=== PATIENT | female | born 1955 | race Caucasian/White ===

== ENCOUNTER 2019-12-29 16:09 | Emergency (ER) | payer OTHER ==
[2019-12-29 17:28] LABS: MUDS CUTOFF CONCENTRATIONS CUTOFF CONC BELOW:
[2019-12-29 17:31] LABS: BILIRUBIN,URINE NEGATIVE (NEGATIVE); GLUCOSE, URINE (UA) NEGATIVE (NEGATIVE); KETONES,URINE (UA) NEGATIVE (NEGATIVE); LEUKOCYTE ESTERASE, URINE NEGATIVE (NEGATIVE); NITRITE,URINE NEGATIVE (NEGATIVE); OCCULT BLOOD,URINE TRACE-LYSE (NEGATIVE); PROTEIN,URINE NEGATIVE (NEGATIVE); UROBILINOGEN,URINE 0.2 (NORMAL) E.U./dL (NORMAL)
[2019-12-29 17:32] LABS: CLARITY,URINE CLEAR (CLEAR)
[2019-12-29 17:42] LABS: AMPHETAMINE SCREEN,URINE NEGATIVE (NEGATIVE); BENZODIAZEPINES SCREEN, URINE NEGATIVE (NEGATIVE); COCAINE SCREEN URINE NEGATIVE (NEGATIVE); METHADONE SCREEN, URINE NEGATIVE (NEGATIVE); METHAMPHETAMINES SCREEN, URINE NEGATIVE (NEGATIVE); OPIATE SCREEN, URINE NEGATIVE (NEGATIVE); OXYCODONE SCREEN, URINE NEGATIVE (NEGATIVE); PROPOXYPHENE SCREEN, URINE NEGATIVE (NEGATIVE); TRICYCLIC ANTIDEPRESSANT,URINE NEGATIVE (NEGATIVE)
[2019-12-29 17:43] LABS: BASOPHILS # (AUTO) 0.1 10^3/uL (0.0-0.1); BASOPHILS % (AUTO) 1.6 %; EOSINOPHILS # (AUTO) 0.1 10^3/uL (0.0-0.7); EOSINOPHILS % (AUTO) 1.5 %; LYMPHOCYTES # (AUTO) 3.3 10^3/uL (1.5-3.5); LYMPHOCYTES % (AUTO) 48.7 %; MEAN CORPUSCULAR HEMOGLOBIN 33.7 pg (27.0-31.0); MEAN CORPUSCULAR HGB CONC 34.2 g/dL (32.0-36.0); MEAN CORPUSCULAR VOLUME 98.7 fL (81.0-99.0); MEAN PLATELET VOLUME 9.5 fL (7.9-10.8); MONOCYTES # (AUTO) 0.7 10^3/uL (0.0-1.0); MONOCYTES % (AUTO) 9.9 %; NEUTROPHILS # (AUTO) 2.6 10^3/uL (1.5-6.6); NEUTROPHILS % (AUTO) 37.9 %; PLT - PLATELET COUNT 228 10^3/uL (130-450); RED BLOOD COUNT 4.45 10^6/uL (4.20-5.40); RED CELL DISTRIBUTION WIDTH 13.2 % (12.0-15.0); WHITE BLOOD COUNT 6.7 x10^3/uL (4.8-10.8)
--- NOTE | 2019-12-29 17:55 | ED Physician Documentation ---
PD HPI MHE - Stated complaint Stated Complaint: MHE - Chief complaint Chief Complaint: MHE - History obtained from History obtained from: Patient, Friend - History of Present Illness Primary symptom: Suicidal ideation, Other (alcoholic) Timing - onset: Unknown Pain level max: 0 Pain level now: 0 Recently seen: Not recently seen - Additional information Additional information: Patient is a 64-year-old female who presents to the emergency department stating that she has increasing alcohol use over the past several years, increasing depression recently. Brought in by her friend for help. She states that her grandson was murdered approximately 5 years ago. She does not see a counselor. Her doctor has been prescribing Zoloft and Wellbutrin, she has intermittently been taking this. She states she does not want to be in the emergency department. She states that she just wants to get in her truck and "go for a swim". By this she means she wants to drive it off the bridge and into the water below. Review of Systems Ten Systems: 10 systems reviewed and negative Constitutional: denies: Fever, Chills Ears: denies: Ear pain Nose: denies: Rhinorrhea / runny nose, Congestion Throat: denies: Sore throat Cardiac: denies: Chest pain / pressure Respiratory: denies: Cough GI: denies: Nausea, Vomiting, Diarrhea Skin: denies: Rash Musculoskeletal: denies: Neck pain, Back pain Neurologic: denies: Focal weakness, Numbness, Headache PD PAST MEDICAL HISTORY - Past Medical History Cardiovascular: None Respiratory: Asthma Neuro: TIA Endocrine/Autoimmune: None GI: GERD TRAINING MGR: None : None HEENT: None Psych: Depression, Anxiety Musculoskeletal: None Derm: None - Past Surgical History Past Surgical History: Yes General: Appendectomy Ortho: Other /TRAINING MGR: section - Allergies Allergies/Adverse Reactions: Allergies Allergy/AdvReac Type Severity Reaction Status Date / Time No Known Drug Allergies Allergy Verified 12/29/19 16:39 - Social History Does the pt smoke?: Yes Smoking Status: Current every day smoker Does the pt drink ETOH?: Yes ETOH Use: Wine Does the pt have substance abuse?: Yes Substance Use and Type: Marijuana - Immunizations Immunizations are current?: Yes PD ED PE NORMAL - Vitals Vital signs reviewed: Yes - General General: Alert and oriented X 3, No acute distress, Other (intoxicated, tearful) - HEENT HEENT: PERRL, Moist mucous membranes - Neck Neck: Supple, no meningeal sign - Cardiac Cardiac: RRR - Respiratory Respiratory: No respiratory distress, Clear bilaterally - Abdomen Abdomen: Soft, Non tender, Non distended - Derm Derm: Warm and dry - Extremities Extremities: No edema - Neuro Neuro: Alert and oriented X 3 - Psych Psych: Other (tearful, intoxicated.) Results - Vitals Vitals: Vital Signs - 24 hr 12/29/19 12/29/19 16:25 17:17 Temperature 36.8 C Heart Rate 110 H 99 Respiratory 20 18 Rate Blood Pressure 159/91 H 158/89 H O2 Saturation 98 95 Oxygen O2 Source Room air - Labs Labs: Laboratory Tests 12/29/19 12/29/19 12/29/19 16:57 17:38 17:38 WBC 6.7 RBC 4.45 Hgb 15.0 Hct 43.9 MCV 98.7 MCH 33.7 H MCHC 34.2 RDW 13.2 Plt Count 228 MPV 9.5 Neut # (Auto) 2.6 Lymph # (Auto) 3.3 [place] # (Auto) 0.7 Eos # (Auto) 0.1 Baso # (Auto) 0.1 Absolute Nucleated RBC 0.00 Nucleated RBC % 0.0 Sodium 142 Potassium 4.0 Chloride 104 Carbon Dioxide 19 L Anion Gap 19.0 H BUN 9 Creatinine 0.5 Estimated GFR (MDRD) 125 Glucose 100 Calcium 9.0 Total Bilirubin 0.6 AST 31 ALT 26 Alkaline Phosphatase 68 Total Protein 7.7 Albumin 4.2 Globulin 3.5 Albumin/Globulin Ratio 1.2 Lipase 21 L TSH Urine Color YELLOW Urine Clarity CLEAR Urine pH 5.0 Ur Specific [place] 1.025 Urine Protein NEGATIVE Urine Glucose (UA) NEGATIVE Urine Ketones NEGATIVE Urine Occult Blood TRACE-LYSE Urine Nitrite NEGATIVE Urine Bilirubin NEGATIVE Urine Urobilinogen 0.2 (NORMAL) Ur Leukocyte Esterase NEGATIVE Ur Microscopic Review NOT INDICATED Urine Culture Comments NOT INDICATED Salicylates < 6.0 Urine Opiates Screen NEGATIVE Ur Oxycodone Screen NEGATIVE Urine Methadone Screen NEGATIVE Ur Propoxyphene Screen NEGATIVE Acetaminophen < 10 L Ur Barbiturates Screen NEGATIVE Ur Tricyclics Screen NEGATIVE Ur Phencyclidine Scrn NEGATIVE Ur Amphetamine Screen NEGATIVE U Methamphetamines Scrn NEGATIVE U Benzodiazepines Scrn NEGATIVE Urine Cocaine Screen NEGATIVE U Cannabinoids Screen NEGATIVE Ethyl Alcohol 298.1 12/29/19 17:38 WBC RBC Hgb Hct MCV MCH MCHC RDW Plt Count MPV Neut # (Auto) Lymph # (Auto) [place] # (Auto) Eos # (Auto) Baso # (Auto) Absolute Nucleated RBC Nucleated RBC % Sodium Potassium Chloride Carbon Dioxide Anion Gap BUN Creatinine Estimated GFR (MDRD) Glucose Calcium Total Bilirubin AST ALT Alkaline Phosphatase Total Protein Albumin Globulin Albumin/Globulin Ratio Lipase TSH 0.87 Urine Color Urine Clarity Urine pH Ur Specific [place] Urine Protein Urine Glucose (UA) Urine Ketones Urine Occult Blood Urine Nitrite Urine Bilirubin Urine Urobilinogen Ur Leukocyte Esterase Ur Microscopic Review Urine Culture Comments Salicylates Urine Opiates Screen Ur Oxycodone Screen Urine Methadone Screen Ur Propoxyphene Screen Acetaminophen Ur Barbiturates Screen Ur Tricyclics Screen Ur Phencyclidine Scrn Ur Amphetamine Screen U Methamphetamines Scrn U Benzodiazepines Scrn Urine Cocaine Screen U Cannabinoids Screen Ethyl Alcohol PD MEDICAL DECISION MAKING - ED course Complexity details: reviewed results, re-evaluated patient, considered differential, d/w patient, d/w family ED course: Patient is intoxicated in the emergency department. She keeps attempting to leave the department but is here with her friend who is helping to redirect her. She continues to make multiple suicidal statements. I do not feel that she is competent to keep herself safe at home. Therefore she will be held in the emergency department while she araseli and reevaluated after that. Patient signed out to the [facility] emergency department physician. Patient will likely need a dual diagnosis treatment facility. Departure - Departure Clinical Impression: Alcoholism, Suicidal ideation Depression Qualifiers: Depression Type: unspecified Qualified Code(s): F32.9 - Major depressive disorder, single episode, unspecified Condition: Stable
[2019-12-29 17:59] LABS: ACETAMINOPHEN < 10 ug/mL (10-30); ALBUMIN 4.2 g/dL (3.2-5.5); ALBUMIN/GLOBULIN RATIO 1.2 (1.0-2.2); ALKALINE PHOSPHATASE 68 IU/L (42-121); ALT ALANINE AMINOTRANSFERASE 26 IU/L (10-60); AST ASPARTATE AMINOTRANSFERASE 31 IU/L (10-42); BILIRUBIN,TOTAL 0.6 mg/dL (0.2-1.0); BUN - BLOOD UREA NITROGEN 9 mg/dL (6-20); CARBON DIOXIDE - CO2 19 mmol/L (21-32); CHLORIDE 104 mmol/L (101-111); CREATININE 0.5 mg/dL (0.4-1.0); GLUCOSE 100 mg/dL (70-100); LIPASE 21 U/L (22-51); SALICYLATE < 6.0 mg/dL; SODIUM 142 mmol/L (135-145); TOTAL PROTEIN 7.7 g/dL (6.7-8.2)
[2019-12-29] MEDS ORDERED: LORazepam 1 MG TABLET PO STA (20:19)
[2019-12-30] MEDS ORDERED: ONDANSETRON ODT 4 MG TABLET TL STA (03:36)
[2019-12-30] MEDS ORDERED: LORazepam 1 MG TABLET PO STA ×2 (03:36→15:47)
--- NOTE | 2019-12-30 15:18 | ED Physician Documentation ---
ED Addendum - Addendum Addendum: 12/30/19 15:16Patient had an uneventful night. She is been cooperative now in the ER since being sober. She has not needed medication. Social work has talked with the patient. The patient states she is not feeling suicidal at this point. She is willing to be treated for dual diagnosis of her substance abuse and depression. She is not having any focal symptoms otherwise. Denies chest pain or belly pain. No vomiting or diarrhea. She is awake and interacts conversant politely. Respirations are unlabored. Moves all extremities.
--- NOTE | 2019-12-30 17:00 | ED Physician Documentation ---
ED Addendum - Addendum Addendum: 12/30/19 16:58 The patient was further assessed and counseled by social work. They were trying to get acute detox. However the patient was preferring to [facility] and was trying to make arrangements outpatient on her own. For concern of patient compliance and for concern of minimizing depression symptoms, the social insurance adviser felt DCR evaluation was warranted. Vero from DCR rehabilitation attendant talked with the patient and felt that she was not needing detainment and could be discharged home. The patient is preferring to get herself into [facility]. I offered medication for withdrawal symptoms and she accepted that. We will now be discharging her home. Discharge diagnosis: Alcoholism 2. Alcohol intoxication 3. Suicidal ideation and depression Disposition discharged home in stable condition
[2019-12-30 17:13] VITALS: BP 194/95
== END 2019-12-30 17:14 | disposition home or self-care (01) ==
LOC: ED 16:09
DX: F32.9 Major depressive disorder, single episode, unspecified (principal); R45.851 Suicidal ideations; F10.229 Alcohol dependence with intoxication, unspecified; F17.200 Nicotine dependence, unspecified, uncomplicated; Z20.828 Contact with and (suspected) exposure to other viral communicable diseases
CPT/HCPCS: 36415; 80320; 80329; 81003; 83690; 87635; 93005; 99283; 99284; J8499; Q0162; 80053; 80306; 80307; 81001; 82607; 83735; 84443; 85025; 87086

== ENCOUNTER 2020-02-14 21:09 | Outpatient (CLI) | payer OTHER | END 2020-02-14 21:10 | disposition critical access hospital (66) | LOC: EMS 21:09 | PROVIDERS: ATTEND Surgery | DX: R45.89 Other symptoms and signs involving emotional state (principal); Z72.89 Other problems related to lifestyle | CPT/HCPCS: A0425; A0429 ==

== ENCOUNTER 2020-02-14 21:33 | Emergency (ER) | payer OTHER ==
--- NOTE | 2020-02-14 22:21 | ED Physician Documentation ---
History of Present Illness - Stated complaint Stated Complaint: alcohol and marijuana use - Chief complaint Chief Complaint: General - History obtained from History obtained from: Patient - Additonal information Additional information: 64-year-old woman with past medical history of alcohol abuse presents with alcohol and marijuana intoxication this evening. She states she has been depressed this week and was drinking box wine today then smoked marijuana "for the first time in 40 years". she then began to feel extremely anxious, called multiple friends and family, and eventually ems was called. she expressed interest in detox program at that time. on arrival to ed patient is intoxicated, with no acute complaints. denies si/hi/avh. Interested in obtaining information about detox. denies prior withdrawal history. denies other drug use besides MJ. Review of Systems Ten Systems: 10 systems reviewed and negative PD PAST MEDICAL HISTORY - Past Medical History Cardiovascular: None Respiratory: Asthma Neuro: TIA Endocrine/Autoimmune: None GI: GERD FIGURE MODEL: None : None HEENT: None Psych: Depression, Anxiety Musculoskeletal: None Derm: None - Past Surgical History Past Surgical History: Yes General: Appendectomy Ortho: Other /FIGURE MODEL: section - Present Medications Home Medications: Ambulatory Orders Medication Instructions Recorded Confirmed Ondansetron Odt [Zofran] 4 mg TL Q6H PRN #10 tablet 12/30/19 chlordiazePOXIDE [Librium] 25 mg PO Q6H PRN #16 capsule 12/30/19 - Allergies Allergies/Adverse Reactions: Allergies Allergy/AdvReac Type Severity Reaction Status Date / Time No Known Drug Allergies Allergy Verified 02/14/20 21:38 - Social History Does the pt smoke?: Yes Smoking Status: Current every day smoker Does the pt drink ETOH?: Yes Does the pt have substance abuse?: Yes - Immunizations Immunizations are current?: Yes PD ED PE NORMAL - Vitals Vital signs reviewed: Yes - General General: Alert and oriented X 3 - HEENT HEENT: Atraumatic, PERRL, EOMI - Neck Neck: Supple, no meningeal sign - Cardiac Cardiac: RRR - Respiratory Respiratory: No respiratory distress, Clear bilaterally - Abdomen Abdomen: Normal bowel sounds, Non tender, Non distended - Female Female : Deferred - Rectal Rectal: Deferred - Back Back: No spinal TTP - Derm Derm: Normal color, Warm and dry - Extremities Extremities: No deformity - Neuro Neuro: Alert and oriented X 3 - Psych Psych: Other (clinically intoxicated) Results - Vitals Vitals: Vital Signs - 24 hr 02/14/20 02/14/20 02/14/20 21:38 21:45 23:50 Temperature 36.6 C 36.6 C Heart Rate 118 H 118 H 95 Respiratory 18 18 Rate Blood Pressure 172/109 H 172/109 H 190/88 H O2 Saturation 97 97 94 02/15/20 06:25 Temperature 37.0 C Heart Rate 108 H Respiratory 20 Rate Blood Pressure 197/116 H O2 Saturation 94 Oxygen O2 Source Room air PD MEDICAL DECISION MAKING - ED course ED course: Old woman with past medical history of alcohol abuse presents with alcohol and marijuana intoxication. No other complaints at this time. Patient observed in the ED. sobriety obtained after a few hours. tolerating po, ambulatory without difficulty, clinically sober. Patient feels safe to go home at this time. Education given. return precautions given. follow up pcp. Departure - Departure Disposition: 01 Home, Self Care Clinical Impression: Alcoholism, Alcohol abuse, Polysubstance (excluding opioids) dependence, Marijuana abuse Condition: Good Instructions: Addiction Alcohol Comments: You have been seen in the emergency department for acute alcohol intoxication as well as marijuana intoxication. You should follow up with your primary doctor to obtain resources to help you manage your addiction. Return to the ED for any other concerns. Discharge Date/Time: 02/15/20 06:54
[2020-02-14] MEDS ORDERED: THIAMINE 100 MG TABLET PO STA (23:33)
[2020-02-15 06:29] VITALS: BP 197/116
== END 2020-02-15 06:54 | disposition home or self-care (01) ==
LOC: EDUNIT# → ED 21:33
DX: F10.229 Alcohol dependence with intoxication, unspecified (principal); F12.229 Cannabis dependence with intoxication, unspecified; F32.9 Major depressive disorder, single episode, unspecified; F41.9 Anxiety disorder, unspecified; F17.200 Nicotine dependence, unspecified, uncomplicated
CPT/HCPCS: 99281; 99283; A9270

== ENCOUNTER 2020-04-08 | Outpatient (CLI) | payer OTHER | END 2020-04-08 23:59 | disposition short-term general hospital (02) | CPT/HCPCS: A0425; A0429 ==

== ENCOUNTER 2021-06-04 04:24 | Outpatient (CLI) | payer OTHER | END 2021-06-04 04:25 | disposition EMS.NT | LOC: EMS 04:24 | DX: S51.812A Laceration without foreign body of left forearm, initial encounter (principal); R45.83 Excessive crying of child, adolescent or adult; F41.9 Anxiety disorder, unspecified; W19.XXXA Unspecified fall, initial encounter ==

== ENCOUNTER 2022-11-10 14:33 | Outpatient (CLI) | payer MEDICARE | END 2022-11-10 23:59 | disposition critical access hospital (66) | LOC: EMS 14:33 | DX: F10.90 Alcohol use, unspecified, uncomplicated (principal); R45.89 Other symptoms and signs involving emotional state | CPT/HCPCS: A0425; A0429 ==

== ENCOUNTER 2022-11-10 15:22 | Emergency (ER) | payer MEDICARE, OTHER ==
[2022-11-10] MEDS ORDERED: THIAMINE INJ 100 MG, MAGNESIUM SULFATE 2 GM, MULTIVITAMIN 10 ML, FOLIC ACID INJ 1 MG in... IV STA ×5 (15:31)
--- NOTE | 2022-11-10 15:31 | ED Physician Documentation ---
PD HPI MHE - Stated complaint Stated Complaint: MHE/ETOH - History obtained from History obtained from: Patient, EMS - History of Present Illness Primary symptom: Other (alcohol intoxication) Timing - onset: Chronic (patient states she is an alcoholic) Contributing factors: Substance abuse - ETOH - Additional information Additional information: Pateint is a 67-year-old female brought in for alcohol intoxication. She states that she did not call the ambulance. EMS states that a friend called an ambulance for her. EMS states that the patient did express a vague passive suicidal ideation, patient states that this is not true and she denies being suicidal or homicidal. 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 She does not have any abdominal pain or vomiting. Patient is tearful. Review of Systems Constitutional: denies: Fever, Chills GI: denies: Vomiting, Diarrhea Skin: denies: Rash Musculoskeletal: denies: Neck pain, Back pain Neurologic: denies: Headache PD PAST MEDICAL HISTORY - Past Medical History Cardiovascular: None Respiratory: Asthma Neuro: TIA Endocrine/Autoimmune: None GI: GERD ACTIVITY SPECIALIST: None : None HEENT: None Psych: Depression, Anxiety Musculoskeletal: None Derm: None - Past Surgical History Past Surgical History: Yes General: Appendectomy Ortho: Other /ACTIVITY SPECIALIST: section - Present Medications Home Medications: Ambulatory Orders Medication Instructions Recorded Confirmed Ondansetron Odt [Zofran] 4 mg TL Q6H PRN #10 tablet 12/30/19 chlordiazePOXIDE [Librium] 25 mg PO Q6H PRN #16 capsule 12/30/19 - Allergies Allergies/Adverse Reactions: Allergies Allergy/AdvReac Type Severity Reaction Status Date / Time No Known Drug Allergies Allergy Verified 11/10/22 15:36 - Social History Does the pt smoke?: Yes Smoking Status: Current every day smoker Does the pt drink ETOH?: Yes Does the pt have substance abuse?: Yes - Immunizations Immunizations are current?: Yes PD ED PE NORMAL - Vitals Vital signs reviewed: Yes - General General: Alert and oriented X 3, No acute distress, Other (tearful, crying) - HEENT HEENT: PERRL, Moist mucous membranes, Pharynx benign - Neck Neck: Supple, no meningeal sign - Cardiac Cardiac: RRR, Strong equal pulses - Respiratory Respiratory: No respiratory distress, Clear bilaterally - Abdomen Abdomen: Soft, Non tender, Non distended - Derm Derm: Warm and dry - Extremities Extremities: Normal ROM s pain, No calf tenderness / cord - Neuro Neuro: Alert and oriented X 3 Results - Vitals Vitals: Vital Signs - 24 hr 11/10/22 15:27 Temperature 36.5 C Heart Rate 97 Respiratory 20 Rate Blood Pressure 156/107 H O2 Saturation 96 Oxygen O2 Source Room air - Labs Labs: Laboratory Tests 11/10/22 11/10/22 15:39 15:39 WBC 7.3 RBC 4.68 Hgb 14.8 Hct 44.4 MCV 94.9 MCH 31.6 H MCHC 33.3 RDW 13.9 Plt Count 236 MPV 9.8 Neut # (Auto) 2.6 Lymph # (Auto) 3.9 H [place] # (Auto) 0.4 Eos # (Auto) 0.2 Baso # (Auto) 0.1 Absolute Nucleated RBC 0.00 Nucleated RBC % 0.0 Sodium 141 Potassium 4.3 Chloride 107 Carbon Dioxide 26 Anion Gap 8.0 BUN 7 Creatinine 0.4 L Estimated GFR (MDRD) 160 Glucose 101 Calcium 9.3 Magnesium 1.9 Total Bilirubin 0.3 AST 15 ALT 10 Alkaline Phosphatase 62 Total Creatine Kinase 43 Total Protein 7.4 Albumin 4.2 Globulin 3.2 Albumin/Globulin Ratio 1.3 Lipase 19 TSH 0.44 Salicylates < 1.5 Acetaminophen 0.1 Ethyl Alcohol 397.5 PD Medical Decision Making - ED course Complexity details: reviewed results, re-evaluated patient, considered differential, d/w patient, d/w family ED course: Patient did sober further in the emergency department. She is heavily intoxicated, but has a longstanding history of alcoholism. She is ambulating with a steady gait. Her friend is comfortable taking her home at this time. Someone will be on the property with her. Patient adamantly denies any suicidal or homicidal ideation. She does not want to go to rehab or detox today. Information will be given about detox. Recommend that she follow-up closely with a counselor and her PCP for further care. Patient counseled regarding signs and symptoms for which I believe and urgent re-evaluation would be necessary. Patient with good understanding of and agreement to plan and is comfortable going home at this time This document was made in part using voice recognition software. While efforts are made to proofread this document, sound alike and grammatical errors may occur. Departure - Departure Disposition: 01 Home, Self Care Clinical Impression: Alcohol abuse Condition: Good Instructions: ED Alcohol Abuse Follow-Up: Your,doctor in 1 week [Other] Comments: You can contact [facility] if you would like help with detox and alcohol abuse. It is important that you follow-up with your primary care provider as well, list of these is provided in this paperwork. Crisis Line and is available to talk to someone Http://[email or web address].org is also available to chat with someone online if you prefer. There are also many resources on this website and apps for your phone to help with your mental health You can also text the word START to [phone] to chat with someome via text. Contact: [facility] [address] [place] [phone] Fax: Forms: PCP List Discharge Date/Time: 11/10/22 17:37
[2022-11-10 15:38] VITALS: BP 156/107
[2022-11-10 15:44] LABS: BASOPHILS # (AUTO) 0.1 10^3/uL (0.0-0.1); BASOPHILS % (AUTO) 1.4 %; EOSINOPHILS # (AUTO) 0.2 10^3/uL (0.0-0.7); EOSINOPHILS % (AUTO) 2.9 %; HCT - HEMATOCRIT 44.4 % (37.0-47.0); HGB - HEMOGLOBIN 14.8 g/dL (12.0-16.0); LYMPHOCYTES # (AUTO) 3.9 10^3/uL (1.5-3.5); LYMPHOCYTES % (AUTO) 54.1 %; MEAN CORPUSCULAR HEMOGLOBIN 31.6 pg (27.0-31.0); MEAN CORPUSCULAR HGB CONC 33.3 g/dL (32.0-36.0); MEAN CORPUSCULAR VOLUME 94.9 fL (81.0-99.0); MEAN PLATELET VOLUME 9.8 fL (7.9-10.8); MONOCYTES # (AUTO) 0.4 10^3/uL (0.0-1.0); MONOCYTES % (AUTO) 5.6 %; NEUTROPHILS # (AUTO) 2.6 10^3/uL (1.5-6.6); NEUTROPHILS % (AUTO) 35.9 %; PLT - PLATELET COUNT 236 10^3/uL (130-450); RED BLOOD COUNT 4.68 10^6/uL (4.20-5.40); RED CELL DISTRIBUTION WIDTH 13.9 % (12.0-15.0); WHITE BLOOD COUNT 7.3 x10^3/uL (4.8-10.8)
[2022-11-10 15:59] LABS: ACETAMINOPHEN 0.1 ug/mL; ALBUMIN 4.2 g/dL (3.2-5.5); ALBUMIN/GLOBULIN RATIO 1.3 (1.0-2.2); ALKALINE PHOSPHATASE 62 IU/L (42-121); ALT ALANINE AMINOTRANSFERASE 10 IU/L (10-60); AST ASPARTATE AMINOTRANSFERASE 15 IU/L (10-42); BILIRUBIN,TOTAL 0.3 mg/dL (0.2-1.0); BUN - BLOOD UREA NITROGEN 7 mg/dL (6-20); CALCIUM 9.3 mg/dL (8.5-10.3); CARBON DIOXIDE - CO2 26 mmol/L (21-32); CHLORIDE 107 mmol/L (101-111); CK- CREATINE KINASE 43 IU/L (30-223); CREATININE 0.4 mg/dL (0.6-1.3); ETOH - ETHANOL 397.5 mg/dL; GFR - MDRD 160 (>89); GLUCOSE 101 mg/dL (74-104); LIPASE 19 U/L (11-82); MAGNESIUM 1.9 mg/dL (1.7-2.3); POTASSIUM 4.3 mmol/L (3.5-4.5); SODIUM 141 mmol/L (135-145); TOTAL PROTEIN 7.4 g/dL (6.4-8.9)
[2022-11-10 16:12] LABS: THYROID STIMULATING HORMONE 0.44 uIU/mL (0.34-5.60)
[2022-11-10 16:13] LABS: SALICYLATE < 1.5 mg/dL
== END 2022-11-10 17:37 | disposition home or self-care (01) ==
LOC: ED 15:22
DX: F10.129 Alcohol abuse with intoxication, unspecified (principal); Y90.8 Blood alcohol level of 240 mg/100 ml or more; F17.200 Nicotine dependence, unspecified, uncomplicated
CPT/HCPCS: 36415; 80053; 80307; 82550; 83690; 83735; 84443; 85025; 96365; 99283; 99284; G0480; J3411; 80320; 80329

== ENCOUNTER 2023-01-07 15:15 | Outpatient (CLI) | payer MEDICARE | END 2023-01-07 15:16 | disposition EMS.NT | LOC: EMS 15:15 | DX: R45.89 Other symptoms and signs involving emotional state (principal); Z63.4 Disappearance and death of family member ==

== ENCOUNTER 2023-01-27 08:00 | Outpatient (CLI) | payer MEDICARE ==
[2023-01-27 18:33] LABS: BILIRUBIN,URINE NEGATIVE (NEGATIVE); GLUCOSE, URINE (UA) NEGATIVE (NEGATIVE); KETONES,URINE (UA) NEGATIVE (NEGATIVE); LEUKOCYTE ESTERASE, URINE MODERATE (NEGATIVE); NITRITE,URINE NEGATIVE (NEGATIVE); OCCULT BLOOD,URINE SMALL (NEGATIVE); PROTEIN,URINE TRACE mg/dL (NEGATIVE); UROBILINOGEN,URINE 0.2 (NORMAL) E.U./dL (NORMAL)
[2023-01-27 18:41] LABS: BACTERIA,URINE Few /HPF (None Seen); CLARITY,URINE HAZY (CLEAR); SQUAMOUS EPITHELIAL CELL,UR FEW Squamous (<= Few); WBC,URINE >25 /HPF (0-5)
== END 2023-01-27 23:58 | disposition home or self-care (01) ==
LOC: LAB 08:00
PROVIDERS: ATTEND Physician Assistant
DX: R30.0 Dysuria (principal)
CPT/HCPCS: 81001; 87077; 87086; 87181

== ENCOUNTER 2023-03-16 23:11 | Outpatient (CLI) | payer MEDICARE | END 2023-03-16 23:12 | disposition critical access hospital (66) | LOC: EMS 23:11 | DX: S00.11XA Contusion of right eyelid and periocular area, initial encounter (principal); R51.9 Headache, unspecified; W18.30XA Fall on same level, unspecified, initial encounter; Y92.009 Unspecified place in unspecified non-institutional (private) residence as the place of occurrence of the external cause; R45.89 Other symptoms and signs involving emotional state; F10.90 Alcohol use, unspecified, uncomplicated | CPT/HCPCS: A0425; A0429 ==

== ENCOUNTER 2023-03-16 23:33 | Emergency (ER) | payer MEDICARE ==
[2023-03-16] MEDS ORDERED: ACETAMINOPHEN 325 MG TABLET PO STA (23:56)
[2023-03-17 00:06] VITALS: BP 145/75; O2SAT 92
--- NOTE | 2023-03-17 02:53 | ED Physician Documentation ---
History of Present Illness - Stated complaint Stated Complaint: BURNS - Chief complaint Chief Complaint: Neuro - History obtained from History obtained from: Patient - Additonal information Additional information: 67yF with pmh etoh abuse presents s/p fall 2 days ago, hitting head on a wheelchair. patient states she had been sober but restarted drinking alcohol 2 weeks ago. she c/o diffuse headache. also with R eye hematoma. denies other injury PD PAST MEDICAL HISTORY - Past Medical History Past Medical History: Yes Cardiovascular: None Respiratory: Asthma Neuro: TIA Endocrine/Autoimmune: None GI: GERD SOFTWARE DEVELOPMENT ANALYST: None : None HEENT: None Psych: Depression, Anxiety Musculoskeletal: None Derm: None - Past Surgical History Past Surgical History: Yes General: Appendectomy Ortho: Other /SOFTWARE DEVELOPMENT ANALYST: section - Present Medications Home Medications: Ambulatory Orders Medication Instructions Recorded Confirmed Ondansetron Odt [Zofran] 4 mg TL Q6H PRN #10 tablet 12/30/19 chlordiazePOXIDE [Librium] 25 mg PO Q6H PRN #16 capsule 12/30/19 Buspirone HCl 10 mg PO DAILY 03/16/23 03/16/23 - Allergies Allergies/Adverse Reactions: Allergies Allergy/AdvReac Type Severity Reaction Status Date / Time No Known Drug Allergies Allergy Verified 03/16/23 23:57 - Social History Does the pt smoke?: Yes Smoking Status: Current every day smoker Does the pt drink ETOH?: Yes Does the pt have substance abuse?: Yes - Immunizations Immunizations are current?: Yes PD ED PE NORMAL - Vitals Vital signs reviewed: Yes - General General: Alert and oriented X 3, No acute distress, Well developed/nourished - HEENT HEENT: Atraumatic, PERRL, EOMI, Other (R periorbital hematoma) - Neck Neck: No bony TTP, C-Spine cleared by NEXUS criteria - Cardiac Cardiac: RRR - Respiratory Respiratory: No respiratory distress, Clear bilaterally - Abdomen Abdomen: Non tender, Non distended - Back Back: No spinal TTP - Derm Derm: Normal color, Warm and dry - Neuro Neuro: Alert and oriented X 3 Eye Opening: Spontaneous Motor: Obeys Commands Verbal: Oriented GCS Score: 15 - Psych Psych: Other (clinically intoxicated) Results - Vitals Vitals: Vital Signs - 24 hr 03/16/23 03/16/23 03/17/23 23:48 23:52 01:52 Temperature 36.8 C Heart Rate 104 H 101 H Respiratory 19 19 Rate Blood Pressure 145/75 H O2 Saturation 92 92 Oxygen O2 Source Room air PD Medical Decision Making - ED course ED course: 67yF presents to the ed s/p fall 2 days ago with +HT, now with headache and R eye bruise. Headache improved with oral tylenol. CT head and max/face showed only BL nasal bone fractures of indeterminate age. also with soft tissue swelling to R frontal bone. she is now clinically sober. plan to f/u outpatient ENT. return precautions given. Departure - Departure Disposition: Home, Self Care Clinical Impression: Nasal bone fracture, Fall, Alcohol abuse Condition: Stable Instructions: ED Fx Nasal Conf W X Ray, ED Head Injury Closed Follow-Up: Kirill Campo, [Physician No Access] - Comments: You were seen in the emergency department for medical evaluation after a fall. You did break your nose on both sides. Please follow up with ENT about this. Please also follow-up with your primary care provider and return to the emergency department if you have any new or worsening symptoms or other co ncerns. Forms: PCP List
--- NOTE | 2023-03-17 07:41 | CT Report ---
PROCEDURE: HEAD WO INDICATIONS: fall 2 day ago +HT severe BURNS TECHNIQUE: Noncontrast 4.5 mm thick angled axial sections acquired from the foramen magnum to the vertex. For r adiation dose reduction, the following was used: automated exposure control, adjustment of mA and/or kV according to patient size. COMPARISON: None. FINDINGS: Image quality: Excellent. CSF spaces: Basal cisterns are patent. No extra-axial fluid collections. Ventricles are normal in size and shape. Brain: No midline shift. No intracranial masses or hemorrhage. López-white matter interface is norm al. Age-related volume loss, mild small vessel ischemic change, intracranial carotid calcifications. Skull and face: Calvarium and visualized facial bones are intact, without suspicious lesions. Sinuses: Visualized sinuses and mastoids are clear. IMPRESSION: No acute intracranial pathology. Findings are concordant with preliminary interpretation provided by [facility]. Reviewed by: Gwyn Carrera MD on 03/17/2023 7:40 AM PST Approved by: Gwyn Carrera MD on 03/17/2023 7:40 AM PST Station ID: [id number]
--- NOTE | 2023-03-17 07:43 | CT Report ---
PROCEDURE: MAXILLOFACIAL WO INDICATIONS: fall 2 d ago, +contusion R face TECHNIQUE: Noncontrast 1.5 mm thick axial images acquired from the mandible through the frontal sinuses, with co geraldine and sagittal reformatting. For radiation dose reduction, the following was used: automated ex posure control, adjustment of mA and/or kV according to patient size. COMPARISON: None. FINDINGS: Image quality: Excellent. Bones and teeth: Orbital santos are intact. Sinus santos show no fracture or deformity. Age-indetermi beatrice nasal bone fractures. Nasal septum intact. Visualized portions of the mandible demonstrate no fr actures or subluxation. Zygomatic arches are intact. Pterygoid plates are intact. Visualized porti ons of the skull base and auditory canals are intact. Sinuses: Paranasal sinuses are aerated, without fluid levels, mucosal thickening, or mucoceles. [place] air cells are aerated. Soft tissues: Mild right forehead soft tissue swelling. No edema, masses, or fluid collections. No enlarged lymph nodes. No soft tissue lacerations or debris. Vascular: Visualized vascular structures appear normal in the absence of contrast. Bony vascular fo ramina and canals are intact. IMPRESSION: 1. Age-indeterminate nasal bone fractures. Findings are concordant with preliminary interpretation provided by [facility]. Reviewed by: Gwyn Carrera MD on 03/17/2023 7:42 AM PST Approved by: Gwyn Carrera MD on 03/17/2023 7:42 AM PST Station ID: [id number]
== END 2023-03-17 04:14 | disposition home or self-care (01) ==
LOC: EDUNIT# → EDBD → ED 23:33
DX: S02.2XXA Fracture of nasal bones, initial encounter for closed fracture (principal); W19.XXXA Unspecified fall, initial encounter; F10.10 Alcohol abuse, uncomplicated; F17.200 Nicotine dependence, unspecified, uncomplicated
CPT/HCPCS: 99283; 99284

== ENCOUNTER 2023-03-17 09:44 | Emergency (ER) | payer MEDICARE ==
[2023-03-17 10:37] LABS: BASOPHILS # (AUTO) 0.1 10^3/uL (0.0-0.1); BASOPHILS % (AUTO) 1.3 %; EOSINOPHILS % (AUTO) 0.3 %; HCT - HEMATOCRIT 42.2 % (37.0-47.0); HGB - HEMOGLOBIN 14.2 g/dL (12.0-16.0); LYMPHOCYTES # (AUTO) 1.7 10^3/uL (1.5-3.5); LYMPHOCYTES % (AUTO) 24.1 %; MEAN CORPUSCULAR HEMOGLOBIN 30.9 pg (27.0-31.0); MEAN CORPUSCULAR HGB CONC 33.6 g/dL (32.0-36.0); MEAN CORPUSCULAR VOLUME 91.9 fL (81.0-99.0); MEAN PLATELET VOLUME 9.6 fL (7.9-10.8); MONOCYTES # (AUTO) 0.6 10^3/uL (0.0-1.0); MONOCYTES % (AUTO) 7.9 %; NEUTROPHILS # (AUTO) 4.6 10^3/uL (1.5-6.6); NEUTROPHILS % (AUTO) 66.1 %; PLT - PLATELET COUNT 206 10^3/uL (130-450); RED BLOOD COUNT 4.59 10^6/uL (4.20-5.40); RED CELL DISTRIBUTION WIDTH 14.7 % (12.0-15.0)
[2023-03-17 10:48] LABS: ALBUMIN 4.6 g/dL (3.2-5.5); ALBUMIN/GLOBULIN RATIO 1.4 (1.0-2.2); BILIRUBIN,TOTAL 1.1 mg/dL (0.2-1.0); CALCIUM 9.3 mg/dL (8.5-10.3); CREATININE 0.4 mg/dL (0.6-1.3); POTASSIUM 4.3 mmol/L (3.5-4.5); TOTAL PROTEIN 7.8 g/dL (6.4-8.9)
[2023-03-17] MEDS ORDERED: LORazepam 2 MG/ML VIAL IVP STA ×2 (10:48→11:53)
[2023-03-17] MEDS ORDERED: THIAMINE INJ 100 MG, MAGNESIUM SULFATE 2 GM, MULTIVITAMIN 10 ML, FOLIC ACID INJ 1 MG in... IV STA ×5 (10:48)
[2023-03-17] MEDS ORDERED: DEXAMETHASONE 10 MG/ML VIAL IVP STA (10:48)
[2023-03-17] MEDS ORDERED: ONDANSETRON 4 MG/2 ML VIAL IVP STA (10:48)
[2023-03-17 14:27] VITALS: O2SAT 95
--- NOTE | 2023-03-17 14:41 | ED Physician Documentation ---
PD HPI NVD - Stated complaint Stated Complaint: VOMIT,WEAK,DIZZY - Chief complaint Chief Complaint: Neuro - History obtained from History obtained from: Patient - History of Present Illness Timing - onset: Last night Timing - duration: Hours Timing - details: Gradual onset, Still present Associated symptoms: Loss of appetite, Other (vomiting, irritability, shaking) Contributing factors: Alcohol use Improved by: Laying still Similar symptoms before: Diagnosis (alcohol intoxication and withdrawal) Recently seen: Emergency Dept - Additonal information Additional information: Paz Gorman is a 67-year-old female with history of alcoholism who has been through treatment and she is coming up on the holidays and the anniversary of the murder of her grandchild. She has begun to drink again and she initially tells me this has been several days later she admits to weeks of drinking. She was in the emergency department last night after a fall and she had CT done for fracture evaluation and was discharged. She went to the waiting room of the hospital at 4 AM and did not have a ride home she eventually began vomiting and going through alcohol withdrawal and has come back into the emergency department. Review of Systems Constitutional: denies: Fever Eyes: denies: Decreased vision Ears: denies: Ear pain Nose: denies: Congestion Throat: denies: Sore throat Cardiac: denies: Chest pain / pressure, Palpitations Respiratory: denies: Dyspnea, Cough GI: reports: Nausea, Vomiting. denies: Abdominal Pain : denies: Dysuria, Frequency Skin: denies: Rash Musculoskeletal: denies: Neck pain, Back pain, Extremity pain Neurologic: reports: Headache, Head injury. denies: Generalized weakness, Focal weakness, Numbness PD PAST MEDICAL HISTORY - Past Medical History Cardiovascular: None Respiratory: Asthma Neuro: TIA Endocrine/Autoimmune: None GI: GERD HOSPITAL CLINIC ASSISTANT: None : None HEENT: None Psych: Depression, Anxiety, Post traumatic stress disorder Musculoskeletal: None Derm: None - Past Surgical History Past Surgical History: Yes General: Appendectomy Ortho: Other /HOSPITAL CLINIC ASSISTANT: section - Present Medications Home Medications: Ambulatory Orders Medication Instructions Recorded Confirmed Ondansetron Odt [Zofran] 4 mg TL Q6H PRN #10 tablet 12/30/19 chlordiazePOXIDE [Librium] 25 mg PO Q6H PRN #16 capsule 12/30/19 Buspirone HCl 10 mg PO DAILY 03/16/23 03/16/23 chlordiazePOXIDE [Librium] 25 mg PO Q6H #15 cap 03/17/23 - Allergies Allergies/Adverse Reactions: Allergies Allergy/AdvReac Type Severity Reaction Status Date / Time No Known Drug Allergies Allergy Verified 03/17/23 10:09 - Social History Does the pt smoke?: Yes Smoking Status: Current every day smoker Does the pt drink ETOH?: Yes Does the pt have substance abuse?: Yes - Immunizations Immunizations are current?: Yes PD ED PE NORMAL - Vitals Vital signs reviewed: Yes (tachy nad hypertensive ) - General General: Alert and oriented X 3, No acute distress, Well developed/nourished - HEENT HEENT: PERRL, EOMI, Other (ecchymosis to the right eye) - Neck Neck: Supple, no meningeal sign, No bony TTP - Cardiac Cardiac: No murmur, Other (tachy to 110) - Respiratory Respiratory: No respiratory distress, Clear bilaterally - Abdomen Abdomen: Normal bowel sounds, Soft, Non tender, Non distended, No organomegaly - Back Back: No CVA TTP, No spinal TTP - Derm Derm: Normal color, Warm and dry, No rash - Extremities Extremities: No deformity, No edema - Neuro Neuro: Alert and oriented X 3, company pilot 2-12 intact, No motor deficit, No sensory deficit, Normal speech Eye Opening: Spontaneous Motor: Obeys Commands Verbal: Oriented GCS Score: 15 - Psych Psych: Normal mood, Normal affect Results - Vitals Vitals: Vital Signs - 24 hr 03/17/23 03/17/23 10:03 14:23 Temperature 37.1 C Heart Rate 104 H 108 H Respiratory 18 18 Rate Blood Pressure 158/92 H 173/102 H O2 Saturation 94 95 Oxygen O2 Source Room air - Labs Labs: Laboratory Tests 03/17/23 03/17/23 03/17/23 10:18 10:18 10:18 WBC 7.0 RBC 4.59 Hgb 14.2 Hct 42.2 MCV 91.9 MCH 30.9 MCHC 33.6 RDW 14.7 Plt Count 206 MPV 9.6 Neut # (Auto) 4.6 Lymph # (Auto) 1.7 [place] # (Auto) 0.6 Eos # (Auto) 0.0 Baso # (Auto) 0.1 Absolute Nucleated RBC 0.00 Nucleated RBC % 0.0 Sodium 133 L Potassium 4.3 Chloride 95 L Carbon Dioxide 24 Anion Gap 14.0 H BUN 11 Creatinine 0.4 L Estimated GFR (MDRD) 160 Glucose 124 H Calcium 9.3 Total Bilirubin 1.1 H AST 46 H ALT 27 Alkaline Phosphatase 72 Total Protein 7.8 Albumin 4.6 Globulin 3.2 Albumin/Globulin Ratio 1.4 Lipase 10 L Ethyl Alcohol 23.8 PD Medical Decision Making - ED course Complexity details: reviewed old records, reviewed results, re-evaluated patient, considered differential, d/w patient Reviewed Lab Results: We reviewed a complete blood count showing a normal white blood cell count normal hemoglobin hematocrit and platelets chemistries were with a sodium low at 133 kidney and liver function otherwise normal with exception of a mildly elevated AST at 46. Toxicology showed a blood alcohol of 23.8. My interpretation of these test are the patient has had alcohol recently and there is no biochemical evidence of severe alcoholic liver disease. ED course: 67-year-old female presents to the emergency department with vomiting and alcohol withdrawal and she has been in withdrawal number of times previously does not want admission for withdrawal or for treatment. She indicates that she believes she will do okay at home going through withdrawal and I have offered medication. Today she received a dose of Ativan which helped tremendously. We also administered a banana bag intravenously as well as 10 mg of dexamethasone.She received a second dose of Ativan which was quite helpful and she was thankful to have medication for use at home. Departure - Departure Disposition: 01 Home, Self Care Clinical Impression: Alcoholism Alcohol withdrawal Qualifiers: Complication of substance-induced condition: with perceptual disturbance Qualified Code(s): F10.932 - Alcohol use, unspecified with withdrawal with perceptual disturbance Condition: Stable Instructions: ED Withdrawal Alcohol Follow-Up: [facility] [place] [Provider Group] Prescriptions: chlordiazePOXIDE [Librium] 25 mg PO Q6H #15 cap Comments: Paz, today it looks like you are in alcohol withdrawal and this is expected to last another date to 2. I have E scribed some Librium for your use to the [facility] in [place]. This medication is to help with the symptoms of withdrawal. You may not need the full amount of medication prescribed and discontinuation or lower dosing will not interfere or cause some other problem. Forms: PCP List
[2023-03-17 15:30] VITALS: BP 163/101
== END 2023-03-17 15:27 | disposition home or self-care (01) ==
LOC: ED 09:44
DX: F10.932 Alcohol use, unspecified with withdrawal with perceptual disturbance (principal); F17.200 Nicotine dependence, unspecified, uncomplicated
CPT/HCPCS: 36415; 80053; 83690; 85025; 96365; 96375; 99284; G0480; J2060; J3411; 80320

== ENCOUNTER 2023-03-31 18:35 | Outpatient (CLI) | payer MEDICARE | END 2023-03-31 18:36 | disposition critical access hospital (66) | LOC: EMS 18:35 | DX: F10.20 Alcohol dependence, uncomplicated (principal) | CPT/HCPCS: A0425; A0429 ==

== ENCOUNTER 2023-03-31 19:03 | Emergency (ER) | payer MEDICARE ==
[2023-03-31] MEDS ORDERED: PHENobarbital 65 MG/ML VIAL IV STA (19:10)
[2023-03-31] MEDS ORDERED: THIAMINE INJ 100 MG, FOLIC ACID INJ 1 MG in SODIUM CHLORIDE 0.9% 1,000 ML IV STA (19:11)
--- NOTE | 2023-03-31 19:24 | ED Physician Documentation ---
History of Present Illness - Stated complaint Stated Complaint: ETOH W/D - Chief complaint Chief Complaint: Neuro - History obtained from History obtained from: EMS - Additonal information Additional information: 67-year-old female with history of alcohol use disorder presents by EMS for alcohol withdrawal. Patient was attempting to get into [facility] for alcohol detox, but was too unstable and so EMS was called. Last drink of alcohol 11am, patient has had withdrawals before. Patient is tremulous on arrival, tearful Review of Systems Unable to obtain: Other (agitated) PD PAST MEDICAL HISTORY - Past Medical History Cardiovascular: None Respiratory: Asthma Neuro: TIA Endocrine/Autoimmune: None GI: GERD FURNITURE FINISHER HELPER: None : None HEENT: None Psych: Depression, Anxiety, Post traumatic stress disorder Musculoskeletal: None Derm: None - Past Surgical History Past Surgical History: Yes General: Appendectomy Ortho: Other /FURNITURE FINISHER HELPER: section - Present Medications Home Medications: Ambulatory Orders Medication Instructions Recorded Confirmed Ondansetron Odt [Zofran] 4 mg TL Q6H PRN #10 tablet 12/30/19 chlordiazePOXIDE [Librium] 25 mg PO Q6H PRN #16 capsule 12/30/19 Buspirone HCl 10 mg PO DAILY 03/16/23 03/16/23 chlordiazePOXIDE [Librium] 25 mg PO Q6H #15 cap 03/17/23 - Allergies Allergies/Adverse Reactions: Allergies Allergy/AdvReac Type Severity Reaction Status Date / Time No Known Drug Allergies Allergy Verified 03/17/23 10:09 - Social History Does the pt smoke?: Yes Smoking Status: Current every day smoker Does the pt drink ETOH?: Yes Does the pt have substance abuse?: Yes - Immunizations Immunizations are current?: Yes PD ED PE NORMAL - Vitals Vital signs reviewed: Yes - General General: Alert and oriented X 3, Other (agitated, tearful) - Cardiac Cardiac: RRR - Respiratory Respiratory: No respiratory distress, Clear bilaterally - Abdomen Abdomen: Soft, Non tender, Non distended - Derm Derm: Normal color, Warm and dry, No rash - Extremities Extremities: No deformity, No tenderness to palpate, Normal ROM s pain - Neuro Neuro: Alert and oriented X 3, outreach worker 2-12 intact, No motor deficit, Normal speech - Psych Psych: Other (anxious, tremulous) Results - Vitals Vitals: Vital Signs - 24 hr 03/31/23 19:14 Temperature 36.7 C Heart Rate 95 Respiratory 18 Rate Blood Pressure 142/99 H O2 Saturation 97 Oxygen O2 Source Room air - Labs Labs: Laboratory Tests 03/31/23 03/31/23 03/31/23 19:19 19:19 19:51 WBC 4.4 L RBC 4.77 Hgb 14.6 Hct 45.5 MCV 95.4 MCH 30.6 MCHC 32.1 RDW 16.0 H Plt Count 218 MPV 9.6 Neut # (Auto) 1.8 Lymph # (Auto) 1.9 [place] # (Auto) 0.4 Eos # (Auto) 0.1 Baso # (Auto) 0.1 Absolute Nucleated RBC 0.00 Nucleated RBC % 0.0 PT 12.3 INR 1.1 Sodium 138 Potassium 4.4 Chloride 101 Carbon Dioxide 21 Anion Gap 16.0 H BUN 6 Creatinine 0.4 L Estimated GFR (MDRD) 160 Glucose 91 Calcium 8.6 Magnesium 1.7 Total Bilirubin 0.5 AST 55 H ALT 52 Alkaline Phosphatase 70 Total Protein 7.2 Albumin 4.2 Globulin 3.0 Albumin/Globulin Ratio 1.4 Lipase 15 Salicylates < 1.5 Acetaminophen < 0.1 Ethyl Alcohol 437.4 PD Medical Decision Making - ED course Complexity details: reviewed old records, reviewed results, re-evaluated patient, considered differential, d/w patient ED course: Patient presenting in acute alcohol withdrawal. She does appear to be agitated and tremulous, last drink approximately 9 hours prior. Empiric phenobarbital ordered. Will also order thiamine, folic acid, IV fluids. Will closely monitor until patient acceptable for detox admission. Patient is now resting comfortably in bed, she is received banana bag and IV fluids. I spoke with the detox stabilization center, they state that they are full for the night but when the patient is more awake they are willing to do a phone intake screening exam. If the patient is still amenable to detox in the morning she may, at 6 AM for intake for an available bed. Care of patient will be signed out to nighttime ER doctor. Departure - Departure Clinical Impression: Alcohol use disorder, mild, abuse Alcohol withdrawal Qualifiers: Complication of substance-induced condition: with unspecified complication Qualified Code(s): F10.939 - Alcohol use, unspecified with withdrawal, unspecified Forms: PCP List
[2023-03-31 19:29] LABS: BASOPHILS # (AUTO) 0.1 10^3/uL (0.0-0.1); BASOPHILS % (AUTO) 3.2 %; EOSINOPHILS # (AUTO) 0.1 10^3/uL (0.0-0.7); EOSINOPHILS % (AUTO) 2.5 %; HCT - HEMATOCRIT 45.5 % (37.0-47.0); HGB - HEMOGLOBIN 14.6 g/dL (12.0-16.0); LYMPHOCYTES # (AUTO) 1.9 10^3/uL (1.5-3.5); LYMPHOCYTES % (AUTO) 43.9 %; MEAN CORPUSCULAR HEMOGLOBIN 30.6 pg (27.0-31.0); MEAN CORPUSCULAR HGB CONC 32.1 g/dL (32.0-36.0); MEAN CORPUSCULAR VOLUME 95.4 fL (81.0-99.0); MEAN PLATELET VOLUME 9.6 fL (7.9-10.8); MONOCYTES # (AUTO) 0.4 10^3/uL (0.0-1.0); MONOCYTES % (AUTO) 9.8 %; NEUTROPHILS # (AUTO) 1.8 10^3/uL (1.5-6.6); NEUTROPHILS % (AUTO) 40.1 %; PLT - PLATELET COUNT 218 10^3/uL (130-450); RED BLOOD COUNT 4.77 10^6/uL (4.20-5.40); WHITE BLOOD COUNT 4.4 x10^3/uL (4.8-10.8)
[2023-03-31] MEDS ORDERED: THIAMINE 100 MG/1 ML 2 ML MDV ONE (19:40)
[2023-03-31] MEDS ORDERED: FOLIC ACID 5 MG/1 ML 10ML MDV ONE (19:40)
[2023-03-31 19:43] LABS: ALBUMIN 4.2 g/dL (3.2-5.5); ETOH - ETHANOL 437.4 mg/dL; LIPASE 15 U/L (11-82); MAGNESIUM 1.7 mg/dL (1.7-2.3)
[2023-03-31 19:50] LABS: ALBUMIN/GLOBULIN RATIO 1.4 (1.0-2.2); ALKALINE PHOSPHATASE 70 IU/L (42-121); ALT ALANINE AMINOTRANSFERASE 52 IU/L (10-60); AST ASPARTATE AMINOTRANSFERASE 55 IU/L (10-42); BILIRUBIN,TOTAL 0.5 mg/dL (0.2-1.0); BUN - BLOOD UREA NITROGEN 6 mg/dL (6-20); CALCIUM 8.6 mg/dL (8.5-10.3); CARBON DIOXIDE - CO2 21 mmol/L (21-32); CHLORIDE 101 mmol/L (101-111); CREATININE 0.4 mg/dL (0.6-1.3); GFR - MDRD 160 (>89); GLUCOSE 91 mg/dL (74-104); POTASSIUM 4.4 mmol/L (3.5-4.5); SALICYLATE < 1.5 mg/dL; SODIUM 138 mmol/L (135-145); TOTAL PROTEIN 7.2 g/dL (6.4-8.9)
[2023-03-31 19:51] LABS: ACETAMINOPHEN < 0.1 ug/mL
[2023-03-31] MEDS ORDERED: PHENobarbital 65 MG/ML VIAL ONE ×2 (20:02→20:06)
[2023-03-31 20:19] LABS: INR 1.1 (0.8-1.2); PT - PROTHROMBIN TIME 12.3 secs (9.9-12.6)
[2023-03-31 22:09] LABS: AMPHETAMINE SCREEN,URINE NEGATIVE (NEGATIVE); COCAINE SCREEN URINE NEGATIVE (NEGATIVE); METHAMPHETAMINES SCREEN, URINE NEGATIVE (NEGATIVE); OPIATE SCREEN, URINE NEGATIVE (NEGATIVE); THC CANNABINOID SCREEN, URINE NEGATIVE (NEGATIVE)
[2023-03-31 22:10] LABS: BARBITURATE SCREEN,UR NEGATIVE (NEGATIVE); BENZODIAZEPINES SCREEN, URINE POSITIVE (NEGATIVE); BUPRENORPHINE SCREEN, URINE NEGATIVE (NEGATIVE); METHADONE SCREEN, URINE NEGATIVE (NEGATIVE); OXYCODONE SCREEN, URINE NEGATIVE (NEGATIVE); TRICYCLIC ANTIDEPRESSANT,URINE NEGATIVE (NEGATIVE)
[2023-04-01 07:27] VITALS: BP 103/92; O2SAT 89
[2023-04-01] MEDS ORDERED: LORazepam 2 MG/ML VIAL IVP STA (07:52)
--- NOTE | 2023-04-15 09:31 | ED Physician Documentation ---
ED Addendum - Addendum Addendum: 04/15/23 09:30 I received signout/turnover of care on this patient from Dr. Barbosa; please see her note for complete history and physical. In brief, this patient was undergoing intake at [facility] but was deemed too intoxicated and reportedly too unstable to be excepted at that time, and thus was advised to come to the emergency department. Her alcohol level was over 400. My colleague ordered thiamine, folate, and IV phenobarbital. Patient rested comfortably throughout my shift. She did not exhibit any overt signs of alcohol withdrawal beyond mild tremulousness, which is surprising given that her alcohol level started at such a high level but had decreased to 170 on a redraw towards the end of my shift. She was able to eat breakfast on her own without more than the mild, generalized tremulousness. She says she has every intention to recontact [facility] to again try to get inpatient treatment for her alcoholism. I ordered, and she was given, 1 mg IV lorazepam at the end of my shift for her mild tremulousness. We discussed return precautions. I do note the nurse's note of hypoxia (pulse ox 88%, 89%) but these were noted with poor pleth on monitor and no respiratory distress. When pleth was strong and correlating with heart rate I note pulse ox of 96-98% on room air. DISPOSITION: 01 Home, self care 04/15/23 09:38
== END 2023-04-01 09:21 | disposition home or self-care (01) ==
LOC: EDUNIT# → ED 19:03
DX: F10.139 Alcohol abuse with withdrawal, unspecified (principal); Y90.8 Blood alcohol level of 240 mg/100 ml or more; F17.200 Nicotine dependence, unspecified, uncomplicated; Z79.899 Other long term (current) drug therapy
CPT/HCPCS: 36415; 80053; 80306; 80307; 83690; 83735; 85025; 85610; 93005; 96365; 96366; 96375; 99284; G0480; J2060; J2560; J3411; 80320; 80329

== ENCOUNTER 2023-05-03 19:07 | Outpatient (CLI) | payer MEDICARE | END 2023-05-03 23:59 | disposition critical access hospital (66) | LOC: EMS 19:07 | DX: Z04.6 Encounter for general psychiatric examination, requested by authority (principal); F10.90 Alcohol use, unspecified, uncomplicated; R45.851 Suicidal ideations; R45.1 Restlessness and agitation | CPT/HCPCS: A0425; A0429 ==

== ENCOUNTER 2023-05-03 19:31 | Emergency (ER) | payer MEDICARE ==
[2023-05-03 19:56] LABS: BASOPHILS # (AUTO) 0.2 10^3/uL (0.0-0.1); BASOPHILS % (AUTO) 3.4 %; EOSINOPHILS # (AUTO) 0.2 10^3/uL (0.0-0.7); EOSINOPHILS % (AUTO) 3.4 %; HCT - HEMATOCRIT 46.2 % (37.0-47.0); HGB - HEMOGLOBIN 15.5 g/dL (12.0-16.0); LYMPHOCYTES # (AUTO) 2.5 10^3/uL (1.5-3.5); LYMPHOCYTES % (AUTO) 57.1 %; MEAN CORPUSCULAR HEMOGLOBIN 31.8 pg (27.0-31.0); MEAN CORPUSCULAR HGB CONC 33.5 g/dL (32.0-36.0); MEAN CORPUSCULAR VOLUME 94.7 fL (81.0-99.0); MEAN PLATELET VOLUME 9.2 fL (7.9-10.8); MONOCYTES # (AUTO) 0.4 10^3/uL (0.0-1.0); MONOCYTES % (AUTO) 8.1 %; NEUTROPHILS # (AUTO) 1.2 10^3/uL (1.5-6.6); NEUTROPHILS % (AUTO) 27.8 %; PLT - PLATELET COUNT 235 10^3/uL (130-450); RED BLOOD COUNT 4.88 10^6/uL (4.20-5.40); RED CELL DISTRIBUTION WIDTH 15.6 % (12.0-15.0); WHITE BLOOD COUNT 4.4 x10^3/uL (4.8-10.8)
[2023-05-03 20:15] LABS: ALBUMIN 4.1 g/dL (3.2-5.5); ALBUMIN/GLOBULIN RATIO 1.2 (1.0-2.2); ALKALINE PHOSPHATASE 63 IU/L (42-121); ALT ALANINE AMINOTRANSFERASE 29 IU/L (10-60); AST ASPARTATE AMINOTRANSFERASE 42 IU/L (10-42); BILIRUBIN,TOTAL 0.3 mg/dL (0.2-1.0); BUN - BLOOD UREA NITROGEN 5 mg/dL (6-20); CALCIUM 8.7 mg/dL (8.5-10.3); CARBON DIOXIDE - CO2 25 mmol/L (21-32); CHLORIDE 103 mmol/L (101-111); CK- CREATINE KINASE 36 IU/L (30-223); CREATININE 0.4 mg/dL (0.6-1.3); ETOH - ETHANOL 387.7 mg/dL; GFR - MDRD 160 (>89); GLUCOSE 106 mg/dL (74-104); LIPASE 23 U/L (11-82); MAGNESIUM 1.7 mg/dL (1.7-2.3); POTASSIUM 4.1 mmol/L (3.5-4.5); SODIUM 141 mmol/L (135-145); TOTAL PROTEIN 7.5 g/dL (6.4-8.9)
[2023-05-03 20:17] LABS: ACETAMINOPHEN < 0.1 ug/mL
[2023-05-03 20:18] LABS: SALICYLATE < 1.5 mg/dL
[2023-05-03 20:51] LABS: THYROID STIMULATING HORMONE 0.92 uIU/mL (0.34-5.60)
[2023-05-03 21:26] LABS: BILIRUBIN,URINE NEGATIVE (NEGATIVE); GLUCOSE, URINE (UA) NEGATIVE (NEGATIVE); KETONES,URINE (UA) NEGATIVE (NEGATIVE); LEUKOCYTE ESTERASE, URINE TRACE (NEGATIVE); NITRITE,URINE NEGATIVE (NEGATIVE); OCCULT BLOOD,URINE NEGATIVE (NEGATIVE); PH,URINE 5.5 PH (5.0-7.5); PROTEIN,URINE NEGATIVE (NEGATIVE); UROBILINOGEN,URINE 0.2 (NORMAL) E.U./dL (NORMAL)
[2023-05-03 21:45] LABS: CLARITY,URINE CLEAR (CLEAR)
[2023-05-03 21:53] LABS: AMPHETAMINE SCREEN,URINE NEGATIVE (NEGATIVE); BACTERIA,URINE Moderate /HPF (None Seen); BARBITURATE SCREEN,UR NEGATIVE (NEGATIVE); BENZODIAZEPINES SCREEN, URINE NEGATIVE (NEGATIVE); BUPRENORPHINE SCREEN, URINE NEGATIVE (NEGATIVE); COCAINE SCREEN URINE NEGATIVE (NEGATIVE); METHADONE SCREEN, URINE NEGATIVE (NEGATIVE); METHAMPHETAMINES SCREEN, URINE NEGATIVE (NEGATIVE); OPIATE SCREEN, URINE NEGATIVE (NEGATIVE); OXYCODONE SCREEN, URINE NEGATIVE (NEGATIVE); RBC,URINE 0-5 /HPF (0-5); SQUAMOUS EPITHELIAL CELL,UR MANY Squamous (<= Few); THC CANNABINOID SCREEN, URINE NEGATIVE (NEGATIVE); TRICYCLIC ANTIDEPRESSANT,URINE NEGATIVE (NEGATIVE)
--- NOTE | 2023-05-03 22:08 | ED Physician Documentation ---
PD HPI MHE - Stated complaint Stated Complaint: ETOH, SI - Chief complaint Chief Complaint: MHE - History obtained from History obtained from: Patient - Additional information Additional information: 67yF with pmh alcohol abuse p/w intoxication tonight and report of SI. denies HI. patient sees her relatives in hallucinations but states it is a benign presence. denies other active concerns. PD PAST MEDICAL HISTORY - Past Medical History Past Medical History: Yes Cardiovascular: None Respiratory: Asthma Neuro: TIA Endocrine/Autoimmune: None GI: GERD ACTIVITIES SPECIALIST: None : None HEENT: None Psych: Depression, Anxiety, Post traumatic stress disorder Musculoskeletal: None Derm: None - Past Surgical History Past Surgical History: Yes General: Appendectomy Ortho: Other /ACTIVITIES SPECIALIST: section - Present Medications Home Medications: Ambulatory Orders Medication Instructions Recorded Confirmed Ondansetron Odt [Zofran] 4 mg TL Q6H PRN #10 tablet 12/30/19 chlordiazePOXIDE [Librium] 25 mg PO Q6H PRN #16 capsule 12/30/19 Buspirone HCl 10 mg PO DAILY 03/16/23 03/16/23 chlordiazePOXIDE [Librium] 25 mg PO Q6H #15 cap 03/17/23 - Allergies Allergies/Adverse Reactions: Allergies Allergy/AdvReac Type Severity Reaction Status Date / Time No Known Drug Allergies Allergy Verified 05/03/23 19:38 - Social History Does the pt smoke?: Yes Smoking Status: Current every day smoker Does the pt drink ETOH?: Yes Does the pt have substance abuse?: Yes - Immunizations Immunizations are current?: Yes PD ED PE NORMAL - Vitals Vital signs reviewed: Yes - General General: Alert and oriented X 3, No acute distress, Well developed/nourished - HEENT HEENT: Atraumatic, PERRL, EOMI, Moist mucous membranes, Pharynx benign - Neck Neck: Supple, no meningeal sign - Cardiac Cardiac: RRR - Respiratory Respiratory: No respiratory distress, Clear bilaterally - Abdomen Abdomen: Non tender, Non distended - Derm Derm: Normal color, Warm and dry - Neuro Neuro: Alert and oriented X 3, platform operations director 2-12 intact, No motor deficit, No sensory deficit, Normal speech - Psych Psych: Other (clinically intoxicated) Results - Vitals Vitals: Vital Signs - 24 hr 05/03/23 05/03/23 05/03/23 19:38 19:45 23:00 Temperature 36.8 C 36.8 C Heart Rate 100 100 123 H Respiratory 20 20 18 Rate Blood Pressure 140/80 H 140/80 H 162/93 H O2 Saturation 96 96 99 05/04/23 04:33 Temperature Heart Rate 106 H Respiratory 18 Rate Blood Pressure 159/91 H O2 Saturation 93 Oxygen O2 Source Room air - Labs Labs: Laboratory Tests 05/03/23 05/03/23 05/03/23 19:50 19:50 21:14 WBC 4.4 L RBC 4.88 Hgb 15.5 Hct 46.2 MCV 94.7 MCH 31.8 H MCHC 33.5 RDW 15.6 H Plt Count 235 MPV 9.2 Neut # (Auto) 1.2 L Lymph # (Auto) 2.5 [place] # (Auto) 0.4 Eos # (Auto) 0.2 Baso # (Auto) 0.2 H Absolute Nucleated RBC 0.00 Nucleated RBC % 0.0 Sodium 141 Potassium 4.1 Chloride 103 Carbon Dioxide 25 Anion Gap 13.0 BUN 5 L Creatinine 0.4 L Estimated GFR (MDRD) 160 Glucose 106 H Calcium 8.7 Magnesium 1.7 Total Bilirubin 0.3 AST 42 ALT 29 Alkaline Phosphatase 63 Total Creatine Kinase 36 Total Protein 7.5 Albumin 4.1 Globulin 3.4 Albumin/Globulin Ratio 1.2 Lipase 23 Vitamin B12 460 Folate 3.2 L TSH 0.92 Urine Color YELLOW Urine Clarity CLEAR Urine pH 5.5 Ur Specific [place] 1.010 Urine Protein NEGATIVE Urine Glucose (UA) NEGATIVE Urine Ketones NEGATIVE Urine Occult Blood NEGATIVE Urine Nitrite NEGATIVE Urine Bilirubin NEGATIVE Urine Urobilinogen 0.2 (NORMAL) Ur Leukocyte Esterase TRACE H Urine RBC 0-5 Urine WBC 4-5 Ur Squamous Epith Cells MANY Squamous H Urine Bacteria Moderate H Ur Microscopic Review INDICATED Urine Culture Comments NOT INDICATED Salicylates < 1.5 Urine Opiates Screen NEGATIVE Ur Buprenorphine Scrn NEGATIVE Ur Oxycodone Screen NEGATIVE Urine Methadone Screen NEGATIVE Acetaminophen < 0.1 Ur Barbiturates Screen NEGATIVE Ur Tricyclics Screen NEGATIVE Ur Phencyclidine Scrn NEGATIVE Ur Amphetamine Screen NEGATIVE U Methamphetamines Scrn NEGATIVE U Benzodiazepines Scrn NEGATIVE Urine Cocaine Screen NEGATIVE U Cannabinoids Screen NEGATIVE Ur Drug Screen Comment CUTOFF CONC BELOW: Ethyl Alcohol 387.7 PD Medical Decision Making - ED course ED course: 67yF presents with etoh intoxication and SI. no other active acute issues. Screening labwork was benign. Likely will need to endorse to incoming daytime ED MD at 7am shift change. Departure - Departure Clinical Impression: Alcohol abuse Condition: Stable Instructions: Addiction Alcohol Comments: You were seen in the emergency department for alcohol intoxication. Please follow-up with your primary care provider and return to the emergency department if you have any new or worsening symptoms or other concerns. Forms: PCP List
[2023-05-03] MEDS ORDERED: FOLIC ACID 1 MG TABLET PO STA (22:09)
[2023-05-03] MEDS ORDERED: THIAMINE 100 MG TABLET PO STA (22:09)
[2023-05-04] MEDS ORDERED: ONDANSETRON ODT 4 MG TABLET TL STA (07:51)
[2023-05-04] MEDS ORDERED: LORazepam 1 MG TABLET PO STA ×2 (07:51→22:27)
--- NOTE | 2023-05-04 08:15 | ED Physician Documentation ---
ED Addendum - Addendum Addendum: 05/04/23 Patient received in signout this morning. Presented to the emergency department feeling suicidal and was found to be significantly intoxicated. This morning patient states that she does not feel suicidal but says she feels awful and would want to if she does not feel better. She is starting to appear tremulous and reports having nausea. I suspect that she is going into alcohol withdrawal. Will administer medications and reevaluate patient. In the meanwhile I do not feel she is safe to go home yet and that social work consult has been placed By overnight physician. 05/04/23 15:29 Per SW, [facility] will not [facility] patient unless her SBP is below 150. IM hydralazine ordered. 05/04/23 17:58 Blood pressure has improved. CIWA score has also improved. Patient is awaiting placement. Patient is signed out at shift change. Results - Vitals Vitals: Vital Signs - 24 hr 05/03/23 05/03/23 05/03/23 19:38 19:45 23:00 Temperature 36.8 C 36.8 C Heart Rate 100 100 123 H Respiratory 20 20 18 Rate Blood Pressure 140/80 H 140/80 H 162/93 H O2 Saturation 96 96 99 05/04/23 04:33 Temperature Heart Rate 106 H Respiratory 18 Rate Blood Pressure 159/91 H O2 Saturation 93 Oxygen O2 Source Room air - EKG (time done) 1141 EKG releavant findings:: EKG personally interpreted by author of this note. Relevant findings are: Rate 114, sinus tachycardia, no STEMI, QTc 439 - Labs Labs: Laboratory Tests 05/03/23 05/03/23 05/03/23 19:50 19:50 21:14 WBC 4.4 L RBC 4.88 Hgb 15.5 Hct 46.2 MCV 94.7 MCH 31.8 H MCHC 33.5 RDW 15.6 H Plt Count 235 MPV 9.2 Neut # (Auto) 1.2 L Lymph # (Auto) 2.5 [place] # (Auto) 0.4 Eos # (Auto) 0.2 Baso # (Auto) 0.2 H Absolute Nucleated RBC 0.00 Nucleated RBC % 0.0 Sodium 141 Potassium 4.1 Chloride 103 Carbon Dioxide 25 Anion Gap 13.0 BUN 5 L Creatinine 0.4 L Estimated GFR (MDRD) 160 Glucose 106 H Calcium 8.7 Magnesium 1.7 Total Bilirubin 0.3 AST 42 ALT 29 Alkaline Phosphatase 63 Total Creatine Kinase 36 Total Protein 7.5 Albumin 4.1 Globulin 3.4 Albumin/Globulin Ratio 1.2 Lipase 23 Vitamin B12 460 Folate 3.2 L TSH 0.92 Urine Color YELLOW Urine Clarity CLEAR Urine pH 5.5 Ur Specific [place] 1.010 Urine Protein NEGATIVE Urine Glucose (UA) NEGATIVE Urine Ketones NEGATIVE Urine Occult Blood NEGATIVE Urine Nitrite NEGATIVE Urine Bilirubin NEGATIVE Urine Urobilinogen 0.2 (NORMAL) Ur Leukocyte Esterase TRACE H Urine RBC 0-5 Urine WBC 4-5 Ur Squamous Epith Cells MANY Squamous H Urine Bacteria Moderate H Ur Microscopic Review INDICATED Urine Culture Comments NOT INDICATED Salicylates < 1.5 Urine Opiates Screen NEGATIVE Ur Buprenorphine Scrn NEGATIVE Ur Oxycodone Screen NEGATIVE Urine Methadone Screen NEGATIVE Acetaminophen < 0.1 Ur Barbiturates Screen NEGATIVE Ur Tricyclics Screen NEGATIVE Ur Phencyclidine Scrn NEGATIVE Ur Amphetamine Screen NEGATIVE U Methamphetamines Scrn NEGATIVE U Benzodiazepines Scrn NEGATIVE Urine Cocaine Screen NEGATIVE U Cannabinoids Screen NEGATIVE Ur Drug Screen Comment CUTOFF CONC BELOW: Ethyl Alcohol 387.7 05/04/23 07:42 WBC RBC Hgb Hct MCV MCH MCHC RDW Plt Count MPV Neut # (Auto) Lymph # (Auto) [place] # (Auto) Eos # (Auto) Baso # (Auto) Absolute Nucleated RBC Nucleated RBC % Sodium Potassium Chloride Carbon Dioxide Anion Gap BUN Creatinine Estimated GFR (MDRD) Glucose Calcium Magnesium Total Bilirubin AST ALT Alkaline Phosphatase Total Creatine Kinase Total Protein Albumin Globulin Albumin/Globulin Ratio Lipase Vitamin B12 Folate TSH Urine Color Urine Clarity Urine pH Ur Specific [place] Urine Protein Urine Glucose (UA) Urine Ketones Urine Occult Blood Urine Nitrite Urine Bilirubin Urine Urobilinogen Ur Leukocyte Esterase Urine RBC Urine WBC Ur Squamous Epith Cells Urine Bacteria Ur Microscopic Review Urine Culture Comments Salicylates Urine Opiates Screen Ur Buprenorphine Scrn Ur Oxycodone Screen Urine Methadone Screen Acetaminophen Ur Barbiturates Screen Ur Tricyclics Screen Ur Phencyclidine Scrn Ur Amphetamine Screen U Methamphetamines Scrn U Benzodiazepines Scrn Urine Cocaine Screen U Cannabinoids Screen Ur Drug Screen Comment Ethyl Alcohol 41.3
[2023-05-04] MEDS ORDERED: PHENobarbital 65 MG/ML VIAL IM ONE (12:37)
[2023-05-04] MEDS ORDERED: PROPRANOLOL 10 MG TABLET PO STA (12:57)
[2023-05-04] MEDS ORDERED: hydrALAZINE INJ 20 MG/ML VIAL IM ONE (15:28)
--- NOTE | 2023-05-04 20:40 | ED Physician Documentation ---
ED Addendum - Addendum Addendum: 05/04/23 20:40 Patient is accepted to [facility] by Angel Duong. COBRA forms completed. Patient will be transferred via ambulance. No other changes during my shift. This document was made in part using voice recognition software. While efforts are made to proofread this document, sound alike and grammatical errors may occur.
--- NOTE | 2023-05-04 20:41 | ED Physician Documentation ---
Departure - Departure Disposition: [facility]/Unit DC/Xfer Clinical Impression: Alcohol abuse, Suicidal ideation Condition: Stable Instructions: Addiction Alcohol Comments: You were seen in the emergency department for alcohol intoxication. Please follow-up with your primary care provider and return to the emergency department if you have any new or worsening symptoms or other concerns. Forms: PCP List
[2023-05-04] MEDS ORDERED: LABETALOL 100 MG TABLET PO STA (22:15)
[2023-05-04 22:43] VITALS: BP 157/83; O2SAT 99
== END 2023-05-04 22:43 ==
LOC: EDUNIT# → ED 19:31
DX: F10.10 Alcohol abuse, uncomplicated (principal); Y90.8 Blood alcohol level of 240 mg/100 ml or more; F17.200 Nicotine dependence, unspecified, uncomplicated
CPT/HCPCS: 36415; 80053; 80306; 80307; 81001; 82550; 82607; 82746; 83690; 83735; 84443; 85025; 87635; 93005; 96372; 99284; 99285; A9270; G0480; J2560; J8499; Q0162; 80320; 80329; 81003; 87086

== ENCOUNTER 2023-07-04 00:45 | Outpatient (CLI) | payer MEDICARE | END 2023-07-04 23:59 | disposition critical access hospital (66) | LOC: EMS 00:45 | DX: Z04.6 Encounter for general psychiatric examination, requested by authority (principal); F10.90 Alcohol use, unspecified, uncomplicated; R45.6 Violent behavior; Z78.1 Physical restraint status | CPT/HCPCS: A0425; A0429 ==

== ENCOUNTER 2023-07-04 00:59 | Emergency (ER) | payer MEDICARE ==
[2023-07-04 01:53] LABS: BASOPHILS % (AUTO) 1.7 %; EOSINOPHILS % (AUTO) 3.2 %; HCT - HEMATOCRIT 47.6 % (37.0-47.0); HGB - HEMOGLOBIN 15.6 g/dL (12.0-16.0); LYMPHOCYTES % (AUTO) 52.3 %; MEAN CORPUSCULAR HEMOGLOBIN 33.1 pg (27.0-31.0); MEAN CORPUSCULAR HGB CONC 32.8 g/dL (32.0-36.0); MEAN CORPUSCULAR VOLUME 101.1 fL (81.0-99.0); MEAN PLATELET VOLUME 10.1 fL (7.9-10.8); MONOCYTES % (AUTO) 5.7 %; NEUTROPHILS % (AUTO) 36.7 %; PLT - PLATELET COUNT 263 10^3/uL (130-450); RED BLOOD COUNT 4.71 10^6/uL (4.20-5.40); RED CELL DISTRIBUTION WIDTH 14.1 % (12.0-15.0); WHITE BLOOD COUNT 9.2 x10^3/uL (4.8-10.8)
[2023-07-04 02:07] LABS: ABNORMAL LYMPHS % (MANUAL) 0 %; BAND NEUTROPHILS % (MANUAL) 0 %
[2023-07-04 02:12] LABS: ACETAMINOPHEN 0.3 ug/mL; ALBUMIN 4.3 g/dL (3.2-5.5); ALBUMIN/GLOBULIN RATIO 1.3 (1.0-2.2); ALKALINE PHOSPHATASE 54 IU/L (42-121); ALT ALANINE AMINOTRANSFERASE 20 IU/L (10-60); AST ASPARTATE AMINOTRANSFERASE 44 IU/L (10-42); BILIRUBIN,TOTAL 0.3 mg/dL (0.2-1.0); BUN - BLOOD UREA NITROGEN 4 mg/dL (6-20); CALCIUM 9.5 mg/dL (8.5-10.3); CARBON DIOXIDE - CO2 23 mmol/L (21-32); CHLORIDE 110 mmol/L (101-111); CK- CREATINE KINASE 55 IU/L (30-223); CREATININE 0.4 mg/dL (0.6-1.3); ETOH - ETHANOL 382.6 mg/dL; GFR - MDRD 159 (>89); GLUCOSE 108 mg/dL (74-104); MAGNESIUM 1.7 mg/dL (1.7-2.3); POTASSIUM 4.1 mmol/L (3.5-4.5); SODIUM 144 mmol/L (135-145); TOTAL PROTEIN 7.6 g/dL (6.4-8.9)
[2023-07-04 02:16] LABS: LIPASE 15 U/L (11-82)
[2023-07-04 02:22] LABS: SALICYLATE < 1.5 mg/dL
[2023-07-04 02:25] LABS: THYROID STIMULATING HORMONE 0.78 uIU/mL (0.34-5.60)
[2023-07-04 02:45] LABS: BASOPHILS # (MANUAL) 0.1 10^3/uL (0-0.1); BASOPHILS % (MANUAL) 1 %; DIFFERENTIAL COMMENT MANUAL DIFFERENTIAL; EOSINOPHILS # (MANUAL) 0.2 10^3/uL (0-0.7); LYMPHOCYTES # (MANUAL) 4.4 10^3/uL (1.5-3.5); LYMPHOCYTES % (MANUAL) 48 %; MONOCYTES # (MANUAL) 0.5 10^3/uL (0.0-1.0); PLATELET ESTIMATE, MANUAL NORMAL (130-450,000) (NORMAL); RBC MORPHOLOGY (MULTIPLE) NORMAL APPEARANCE (NORMAL)
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
[2023-07-04 11:02] VITALS: BP 155/91; O2SAT 95
== END 2023-07-04 10:57 | disposition home or self-care (01) ==
LOC: EDUNIT# → ED 00:59
DX: F10.129 Alcohol abuse with intoxication, unspecified (principal); Y90.8 Blood alcohol level of 240 mg/100 ml or more; F32.A Depression, unspecified; F41.9 Anxiety disorder, unspecified; F17.200 Nicotine dependence, unspecified, uncomplicated; Z79.899 Other long term (current) drug therapy
CPT/HCPCS: 36415; 80053; 80143; 82550; 83690; 83735; 84443; 85025; 87635; 99283; G0480; 80179; 80306; 81001; 81003; 82077; 87086

== ENCOUNTER 2023-11-09 05:32 | Outpatient (CLI) | payer MEDICARE | END 2023-11-09 23:59 | disposition critical access hospital (66) | LOC: EMS 05:32 | DX: Z76.89 Persons encountering health services in other specified circumstances (principal) | CPT/HCPCS: A0425; A0429 ==

== ENCOUNTER 2023-11-09 05:53 | Emergency (ER) | payer MEDICARE ==
[2023-11-09] MEDS ORDERED: THIAMINE 100 MG TABLET PO STA (06:11)
--- NOTE | 2023-11-09 06:12 | ED Physician Documentation ---
History of Present Illness - Stated complaint Stated Complaint: ETOH/SHAKING - Chief complaint Chief Complaint: General - History obtained from History obtained from: Patient - Additonal information Additional information: [id number] Presents by EMS for assistance in quitting alcohol. Patient states that she drinks every day and when she tries to quit she gets "sick". When asked how much alcohol patient drinks she says "not a lot", and cannot tell me exact amounts of what she drinks daily. Last drink 15 minutes prior to arrival per patient. Review of Systems Constitutional: denies: Fever, Chills Cardiac: denies: Chest pain / pressure, Palpitations, Calf pain Respiratory: denies: Dyspnea, Cough, Wheezing GI: denies: Abdominal Pain, Nausea, Vomiting Neurologic: denies: Generalized weakness, Focal weakness, Numbness Psychiatric: denies: Depressed, Suicidal, Homicidal PD PAST MEDICAL HISTORY - Past Medical History Past Medical History: Yes Cardiovascular: None Respiratory: Asthma Neuro: TIA Endocrine/Autoimmune: None GI: GERD SENIOR PRICING ANALYST: None : None HEENT: None Psych: Depression, Anxiety, Post traumatic stress disorder Musculoskeletal: None Derm: None - Past Surgical History Past Surgical History: Yes General: Appendectomy Ortho: Other /SENIOR PRICING ANALYST: section - Present Medications Home Medications: Ambulatory Orders Medication Instructions Recorded Confirmed No Known Home Medications 11/09/23 11/09/23 - Allergies Allergies/Adverse Reactions: Allergies Allergy/AdvReac Type Severity Reaction Status Date / Time No Known Drug Allergies Allergy Verified 11/09/23 06:09 - Social History Does the pt smoke?: Yes Smoking Status: Current every day smoker Does the pt drink ETOH?: Yes Does the pt have substance abuse?: Yes - Immunizations Immunizations are current?: Yes - POLST Patient has POLST: No PD ED PE NORMAL - Vitals Vital signs reviewed: Yes - General General: Alert and oriented X 3, No acute distress - Cardiac Cardiac: RRR, Strong equal pulses - Respiratory Respiratory: No respiratory distress - Derm Derm: Normal color, Warm and dry, No rash - Extremities Extremities: No deformity, No tenderness to palpate, Normal ROM s pain - Neuro Neuro: Alert and oriented X 3, sound recordist 2-12 intact, No motor deficit, Normal speech - Psych Psych: Other (denies si/hi) Results - Vitals Vitals: Vital Signs - 24 hr 11/09/23 06:00 Temperature 36.6 C Heart Rate 99 Respiratory 20 Rate Blood Pressure 163/117 H O2 Saturation 97 Oxygen O2 Source Room air PD Medical Decision Making - ED course Complexity details: reviewed results, re-evaluated patient, considered differential, d/w patient ED course: Patient presenting for help with stopping alcohol. Last drink 15 minutes prior to arrival. Does not appear to be withdrawing at this time. Medical clearance labs ordered. Thiamine and folic acid ordered. Nursing staff informed me that patient allowed EKG but refused blood work and IV. I tried to speak with patient stating that detox facilities would not admit her without lab work. Patient stated that I was being mean to her and she did not want to stay in the emergency department. Patient demanded to be sent home. Left prior to receiving discharge paperwork. Departure - Departure Disposition: 01 Home, Self Care Clinical Impression: Refusal of treatment by patient Condition: Stable Forms: PCP List
[2023-11-09 06:25] VITALS: BP 163/117; O2SAT 97
[2023-11-09] MEDS ORDERED: FOLIC ACID 1 MG TABLET PO SCH (09:00)
== END 2023-11-09 06:45 | disposition home or self-care (01) ==
LOC: EDUNIT# → ED 05:53
DX: F10.90 Alcohol use, unspecified, uncomplicated (principal); F17.200 Nicotine dependence, unspecified, uncomplicated; Z53.29 Procedure and treatment not carried out because of patient's decision for other reasons
CPT/HCPCS: 80053; 80143; 80179; 82077; 85025; 93005; 99283

== ENCOUNTER 2023-11-13 11:28 | Emergency (ER) | payer MEDICARE ==
--- NOTE | 2023-11-13 11:56 | ED Physician Documentation ---
History of Present Illness - Stated complaint Stated Complaint: ETOH - Chief complaint Chief Complaint: General - Additonal information Additional information: 68-year-old female with known alcohol dependence, asthma, TIA, GERD, depression, anxiety, PTSD presents emergency department for alcohol withdrawal symptoms. Patient said that she has not had anything to drink since noon yesterday she said that she had a lot of beer she does not know how many. Her alcohol withdrawal symptoms started last night she has no history of alcohol withdrawal seizures she comes in today originally for medical records but because of her persistent nausea she decided to check into the emergency department for some IV fluids and medication to help her with her withdrawal symptoms. Her plan is to pursue rehab with [facility] and has already started the process but wants to get the symptoms under control first. PD PAST MEDICAL HISTORY - Past Medical History Cardiovascular: None Respiratory: Asthma Neuro: TIA Endocrine/Autoimmune: None GI: GERD CLOSING SUPERVISOR: None : None HEENT: None Psych: Depression, Anxiety, Post traumatic stress disorder Musculoskeletal: None Derm: None - Past Surgical History Past Surgical History: Yes General: Appendectomy Ortho: Other /CLOSING SUPERVISOR: section - Present Medications Home Medications: Ambulatory Orders Medication Instructions Recorded Confirmed No Known Home Medications 11/09/23 11/09/23 - Allergies Allergies/Adverse Reactions: Allergies Allergy/AdvReac Type Severity Reaction Status Date / Time No Known Drug Allergies Allergy Verified 11/13/23 11:32 - Social History Does the pt smoke?: Yes Smoking Status: Current every day smoker Does the pt drink ETOH?: Yes Does the pt have substance abuse?: Yes - Immunizations Immunizations are current?: Yes - POLST Patient has POLST: No PD ED PE NORMAL - Vitals Vital signs reviewed: Yes - General General: Alert and oriented X 3, No acute distress, Well developed/nourished - HEENT HEENT: Atraumatic, PERRL - Cardiac Cardiac: RRR - Respiratory Respiratory: No respiratory distress - Abdomen Abdomen: Normal bowel sounds - Back Back: No CVA TTP - Derm Derm: Normal color - Extremities Extremities: No edema - Neuro Neuro: Alert and oriented X 3, vacuum technician 2-12 intact, No motor deficit, No sensory deficit, Normal speech - Psych Psych: Normal mood, Normal affect Results - Vitals Vitals: Vital Signs - 24 hr 11/13/23 11:32 Temperature 36.5 C Heart Rate 80 Respiratory 18 Rate Blood Pressure 185/118 H O2 Saturation 99 Oxygen O2 Source Room air - Labs Labs: Laboratory Tests 11/13/23 11/13/23 11/13/23 11:58 11:58 12:13 WBC 5.4 RBC 4.96 Hgb 15.9 Hct 45.9 MCV 92.5 MCH 32.1 H MCHC 34.6 RDW 12.8 Plt Count 217 MPV 9.9 Neut # (Auto) 3.9 Lymph # (Auto) 1.0 L [place] # (Auto) 0.4 Eos # (Auto) 0.1 Baso # (Auto) 0.1 Absolute Nucleated RBC 0.00 Nucleated RBC % 0.0 PT 13.8 H INR 1.3 H Sodium 133 L Potassium 3.8 Chloride 97 L Carbon Dioxide 25 Anion Gap 11.0 BUN 7 Creatinine 0.4 L Estimated GFR (MDRD) 159 Glucose 191 H Calcium 9.7 Magnesium 1.4 L Total Bilirubin 1.2 H AST 32 ALT 20 Alkaline Phosphatase 68 Total Protein 7.9 Albumin 4.6 Globulin 3.3 Albumin/Globulin Ratio 1.4 Lipase < 10 L Ethyl Alcohol < 10.0 PD Medical Decision Making - ED course ED course: 68-year-old female presents emergency department for alcohol withdrawal symptoms. She is not having any auditory or visual hallucinations RN reports his CIWA score was 15 my CIWA score was significantly difference found to be 8. Patient did receive 1 mg IV Ativan as well as Zofran to help with her alcohol withdrawal symptoms and she reports almost complete alleviation of alcohol withdrawal symptoms as well as 1000 mg of Tylenol which improved her headache. She also received 1 L of IV fluid as well as Zofran. Patient is presenting directly to [facility] from the ER for rehab. She did have low magnesium and magnesium oxide was replaced as well as thiamine and a multivitamin. Return precautions given all questions answered patient is safe for discharge. Departure - Departure Disposition: 01 Home, Self Care Clinical Impression: Alcohol withdrawal Qualifiers: Complication of substance-induced condition: uncomplicated Qualified Code(s): F10.930 - Alcohol use, unspecified with withdrawal, uncomplicated Instructions: ED Withdrawal Alcohol Comments: Thank you for trusting us with your care. We have given you IV fluids, vitamin B, multivitamin, IV fluids and Tylenol as well as Zofran and Ativan to help with your alcohol withdrawal symptoms. Please present directly to [facility] for rehab. Wishing you the best. Forms: PCP List
[2023-11-13 12:04] LABS: BASOPHILS # (AUTO) 0.1 10^3/uL (0.0-0.1); BASOPHILS % (AUTO) 2.2 %; EOSINOPHILS # (AUTO) 0.1 10^3/uL (0.0-0.7); EOSINOPHILS % (AUTO) 1.3 %; HCT - HEMATOCRIT 45.9 % (37.0-47.0); HGB - HEMOGLOBIN 15.9 g/dL (12.0-16.0); LYMPHOCYTES % (AUTO) 18.5 %; MEAN CORPUSCULAR HEMOGLOBIN 32.1 pg (27.0-31.0); MEAN CORPUSCULAR HGB CONC 34.6 g/dL (32.0-36.0); MEAN CORPUSCULAR VOLUME 92.5 fL (81.0-99.0); MEAN PLATELET VOLUME 9.9 fL (7.9-10.8); MONOCYTES # (AUTO) 0.4 10^3/uL (0.0-1.0); MONOCYTES % (AUTO) 6.5 %; NEUTROPHILS # (AUTO) 3.9 10^3/uL (1.5-6.6); NEUTROPHILS % (AUTO) 71.3 %; PLT - PLATELET COUNT 217 10^3/uL (130-450); RED BLOOD COUNT 4.96 10^6/uL (4.20-5.40); RED CELL DISTRIBUTION WIDTH 12.8 % (12.0-15.0); WHITE BLOOD COUNT 5.4 x10^3/uL (4.8-10.8)
[2023-11-13] MEDS: PRENATAL VITAMIN TABLET PO STA (12:17)
[2023-11-13] MEDS: ONDANSETRON 4 MG/2 ML VIAL IVP STA (12:18)
[2023-11-13] MEDS: THIAMINE 100 MG TABLET PO STA (12:18)
[2023-11-13] MEDS: SODIUM CHLORIDE 0.9% 1,000 ML IV ONE (12:21)
[2023-11-13] MEDS: ACETAMINOPHEN 500 MG TABLET PO STA (12:27)
[2023-11-13 12:28] LABS: ALBUMIN 4.6 g/dL (3.2-5.5); ALBUMIN/GLOBULIN RATIO 1.4 (1.0-2.2); ALKALINE PHOSPHATASE 68 IU/L (42-121); ALT ALANINE AMINOTRANSFERASE 20 IU/L (10-60); AST ASPARTATE AMINOTRANSFERASE 32 IU/L (10-42); BILIRUBIN,TOTAL 1.2 mg/dL (0.2-1.0); BUN - BLOOD UREA NITROGEN 7 mg/dL (6-20); CALCIUM 9.7 mg/dL (8.5-10.3); CARBON DIOXIDE - CO2 25 mmol/L (21-32); CHLORIDE 97 mmol/L (101-111); CREATININE 0.4 mg/dL (0.6-1.3); ETOH - ETHANOL < 10.0 mg/dL; GFR - MDRD 159 (>89); GLUCOSE 191 mg/dL (74-104); MAGNESIUM 1.4 mg/dL (1.7-2.3); POTASSIUM 3.8 mmol/L (3.5-4.5); SODIUM 133 mmol/L (135-145); TOTAL PROTEIN 7.9 g/dL (6.4-8.9)
[2023-11-13] MEDS: LORazepam 2 MG/ML VIAL IVP STA (12:29)
[2023-11-13 12:30] LABS: LIPASE < 10 U/L (11-82)
[2023-11-13 12:41] LABS: INR 1.3 (0.8-1.2); PT - PROTHROMBIN TIME 13.8 secs (9.9-12.6)
[2023-11-13] MEDS: MAGNESIUM OXIDE 400 MG TABLET PO STA (13:56)
[2023-11-13 14:13] VITALS: BP 152/99; O2SAT 97
== END 2023-11-13 14:18 | disposition home or self-care (01) ==
LOC: ED 11:28
DX: F10.230 Alcohol dependence with withdrawal, uncomplicated (principal); E83.42 Hypomagnesemia
CPT/HCPCS: 36415; 80053; 83690; 83735; 85025; 85610; 96374; 96375; 99284; A9270; G0480; J2060; 82077